=== PATIENT | female | born 1970 | race Caucasian/White ===

== ENCOUNTER → 2021-11-25 20:52 | Outpatient (CLI) | payer BC, SELFPAY ==
[2021-11-25 17:09] LABS: Basophils % 0.9 % (0.1-2.0); Eosinophils # 0.1 K/mm3 (0.0-0.4); Eosinophils % 2.1 % (0.1-12.0); Hematocrit 43.9 % (37.0-47.0); Hemoglobin 14.3 g/dL (12.2-16.2); Lymphocytes # 1.3 K/mm3 (0.7-4.5); Lymphocytes % 27.1 % (10-50); Mean Corpuscular HGB Conc 32.6 g/dL (31.8-35.4); Mean Corpuscular Hemoglobin 30.1 pg (27.0-31.2); Mean Corpuscular Volume 92.4 fl (81-99); Mean Platelet Volume 9.3 fl (7.4-10.4); Monocytes # 0.4 K/mm3 (0.1-1.0); Monocytes % 7.4 % (1.7-9.3); Neutrophils # 3.1 K/mm3 (1.8-7.8); Neutrophils % 62.5 % (37.0-80.0); Platelet Count 201 K/mm3 (142-424); Red Blood Count 4.75 M/mm3 (4.20-5.40); Red Cell Distribution Width 13.9 % (11.5-17.5)
[2021-11-25 17:10] LABS: Alanine Aminotransferase 14 U/L (12-78); Albumin Level 4.3 g/dl (3.5-5.0); Albumin/Globulin Ratio 1.4 (1.1-1.8); Alkaline Phosphatase 44 U/L (38-126); Anion Gap 10.6 mEq/L (5-15); Aspartate Amino Transferase 27 U/L (14-36); Bilirubin,Total 0.5 mg/dl (0.2-1.3); Blood Urea Nitrogen 10 mg/dl (7-17); Calcium 9.8 mg/dl (8.4-10.2); Carbon Dioxide 28 mmol/L (22.0-30.0); Chloride 106 mmol/L (98-107); Chol/HDL Ratio 3.2 (1-3.5); Cholesterol 242 mg/dl (140-200); Estimated Glomerular Filt Rate 105 ml/min (>60); GFR (African American) 127 ML/MIN (>60); Glucose 104 mg/dl (74-100); HDL Cholesterol 76 mg/dl (40-60); Potassium 4.6 mmoL/L (3.5-5.1); Sodium 140 mmol/L (136-145); Total Protein,Serum 7.3 g/dl (6.3-8.2); Triglycerides 105 mg/dl (30-150); VLDL Cholesterol 21 mg/dL (0-40)
[2021-11-25 17:21] LABS: Direct LDL Cholesterol 116.04 mg/dL (100-129)
[2021-11-25 17:28] LABS: 25-OH Vitamin D, Total 51.8 ng/mL (30-100)
[2021-11-25 17:37] LABS: Hemoglobin A1C 5.6 % (4.0-6.0)
[2021-11-25 17:41] LABS: Thyroid Stimulating Hormone 2.77 uIU/mL (0.465-4.68)
== END ==
PROVIDERS: PCP Family Medicine; Visit Provider Family Medicine
DX: R53.83 Other fatigue (principal); E03.9 Hypothyroidism, unspecified; I10 Essential (primary) hypertension; E11.9 Type 2 diabetes mellitus without complications
CPT/HCPCS: 80053; 80061; 82306; 82746; 83036; 84443; 85025

== ENCOUNTER → 2021-12-10 07:37 | Outpatient (CLI) | payer SELFPAY ==
--- NOTE | 2021-12-10 07:42 | CT_ITS ---
FINAL REPORT CLINICAL HISTORY: hx of heart palpitation. family hx of [place] FINDINGS: CT CORONARY CALCIUM SCORE W/O TECHNIQUE: Thin-section axial images were obtained through the heart and coronary arteries per CT coronary calcium score protocol. This study was performed with techniques to keep radiation doses as low as reasonably achievable (ALARA). Individualized dose reduction techniques using automated exposure control or adjustment of mA and/or kV according to the patient's size were employed. FINDINGS: On the axial images, there is calcification primarily within the LAD however a small amount is seen within the right coronary artery. This gives a coronary artery calcium score of 130 based on the Agatston scale. This coronary artery calcium score places the patient within the 95th percentile based on age and gender. The heart size is normal. There is no pleural or pericardial effusion. Limited evaluation of the lungs reveal no suspicious nodule. There are calcified granulomas in the right lower lobe. IMPRESSION: Coronary artery calcium score of 130 which places the patient within the 95th percentile based on age and gender. Reviewed, Interpreted and Dictated by Hudson Abernathy III, MD Transcribed by Julia Schwartz Authenticated and [facility]
== END ==
PROVIDERS: PCP Family Medicine; Visit Provider Family Medicine
DX: I25.10 Atherosclerotic heart disease of native coronary artery without angina pectoris (principal)
CPT/HCPCS: 75571

== ENCOUNTER → 2023-04-12 12:00 | Outpatient (CLI) | payer BC, SELFPAY ==
[2023-04-12 18:46] LABS: Alanine Aminotransferase 17 U/L (12-78); Albumin Level 4.3 g/dl (3.5-5.0); Albumin/Globulin Ratio 1.4 (1.1-1.8); Alkaline Phosphatase 44 U/L (38-126); Anion Gap 9.5 mEq/L (5-15); Aspartate Amino Transferase 28 U/L (14-36); Bilirubin,Total 0.5 mg/dl (0.2-1.3); Blood Urea Nitrogen 14 mg/dl (7-17); Calcium 8.9 mg/dl (8.4-10.2); Carbon Dioxide 26 mmol/L (22.0-30.0); Chloride 107 mmol/L (98-107); Chol/HDL Ratio 3.1 (1-3.5); Cholesterol 218 mg/dl (140-200); Estimated Glomerular Filt Rate 87 ml/min (>60); GFR (African American) 106 ML/MIN (>60); Glucose 102 mg/dl (74-100); HDL Cholesterol 70 mg/dl (40-60); Potassium 4.5 mmoL/L (3.5-5.1); Sodium 138 mmol/L (136-145); Total Protein,Serum 7.3 g/dl (6.3-8.2); Triglycerides 57 mg/dl (30-150); VLDL Cholesterol 11 mg/dL (0-40)
[2023-04-12 19:07] LABS: Direct LDL Cholesterol 125.27 mg/dL (100-129)
[2023-04-12 19:13] LABS: Thyroid Stimulating Hormone 2.93 uIU/mL (0.465-4.68)
== END ==
PROVIDERS: PCP Family Medicine; Visit Provider Family Medicine
DX: Z00.00 Encounter for general adult medical examination without abnormal findings (principal); R73.9 Hyperglycemia, unspecified; E78.00 Pure hypercholesterolemia, unspecified
CPT/HCPCS: 80053; 80061; 84443

== ENCOUNTER 2024-12-11 07:51 | Outpatient (CLI) | payer BC, SELFPAY ==
--- OUTSIDE RECORDS SUMMARY | 2023-12-11 05:00 | XMS_ITS ---
Author Organization [facility] Address [address] [place] [address] Care Team Providers Care System Support Technician Name Role Phone Migration, Provider Unavailable Unavailable Allergies Allergen (clinical drug ingredient) Drug/Non Drug Allergy documented on EMR Reaction Allergy Type Onset Date Status Medications: NO KNOWN DRUG ALLERGIES (uncoded) Unspecified Allergy Active Social History Tobacco Use: Social History Observation Description Date Smoking Status WARNING: Information temporarily unavailable Social History Household: Social Info Question Answer Notes Household Marital status: Tobacco Use: Social Info Question Answer Notes Tobacco Control (Standard) Tobacco use: Never Encounters Encounter Location Date Provider Diagnosis [facility] [address] [place] [address] 12/11/2023 Provider Migration Plan Of Treatment No Information Progress Notes * Maribell WILBURNDOB:1970 ([age] yo F)Acc No.[id number]:12/11/2023 Patient: Maribell HANNAH :1970 A ge:53 Y S ex:Female [address] [facility] [address] Subjective: * Chief Complaints: * Medical History: Appendix Neoplasm, 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 Induced 0 , A B. Spontaneous 0 , E ctopics 0 , M ultiple Births 0 , L iving 2 . G P G ravida: 2 , P susana: 2 . P regnancy # 1: B irthDate :12/18/1994 BirthLbs :8 BirthOzs :5 Comment : Weight: 8.5 DeliveryType :Vaginal PTL :N Sex :F. Elizabeth silva # 2: B irthDate :08/17/1997 BirthLbs :10 Comment : Weight: 10 DeliveryType :Vaginal PTL :N Sex :M. * Surgical History: Appendectomy cancer 2018 Bilateral salpingectomy with oophorectomy 2018 Colon surgery 2018 Gallbladder Surgery - Open 2018 lymph node biopsy * Family History: F amily History Verified.. Mother: Bladder Neoplasm, Malignant. * Allergies: M edications: NO KNOWN DRUG ALLERGIES: Unspecified - AllergyyesAllergies Verified. * * Date:
--- OUTSIDE RECORDS SUMMARY | 2024-11-06 07:47 | XMS_ITS | Encounter Summary ---
Author Organization [place] [address] Care Team Providers Care Paralegal Legal Secretary Name Role Phone Eder Malone MD Primary Care Provider [phone] Reason for Referral * MRI/CAT Scan (Routine) - Pending Review Specialty Diagnoses / Procedures Referred By Contac t Referred To Contact Radiology Diagnoses Primary malignant neoplasm of appendix (HCC) Procedures CT ABDOMEN PELVIS W CONTRAST Gab Olivo MD [address] [place] [address] [place] [address] Phone: tel: fax: Referral ID Status Reason Start Date Expiration Date V isits Requested Visits Authorized [id number] Pending Review 07/12/2024 07/12/2025 1 1 * MRI/CAT Scan (Routine) - Pending Review Specialty Diagnoses / Procedures Referred By Contac t Referred To Contact Radiology Diagnoses Primary malignant neoplasm of appendix (HCC) Procedures CT CHEST W CONTRAST Gab Olivo MD [address] [place] [address] [place] [address] Phone: tel: fax: Referral ID Status Reason Start Date Expiration Date V isits Requested Visits Authorized [id number] Pending Review 07/12/2024 07/12/2025 1 1 * MRI/CAT Scan (Routine) - Closed Specialty Diagnoses / Procedures Referred By Contac t Referred To Contact Radiology Diagnoses Malignant neoplasm of appendix (HCC) Procedures CT CHEST ABDOMEN PELVIS W CONTRAST Gab Olivo MD [address] [place] [address] [place] [address] Phone: tel: fax: Referral ID Status Reason Start Date Expiration Date Visits Re quested Visits Authorized [id number] Closed 07/06/2024 07/06/2025 1 1 Reason for Visit * MRI/CAT Scan (Routine) - Closed Specialty Diagnoses / Procedures Referred By Contac t Referred To Contact Radiology Diagnoses Malignant neoplasm of appendix (HCC) Procedures CT CHEST ABDOMEN PELVIS W CONTRAST Gab Olivo MD [address] [place] [address] [place] [address] Phone: tel: fax: Referral ID Status Reason Start Date Expiration Date Visits Re quested Visits Authorized [id number] Closed 07/06/2024 07/06/2025 1 1 Encounter Details Date Type Department Care Team (Latest Contact Info) Description 11/06/2024 7:47 AM EDT - 11/06/2024 11:59 PM EDT Hospital Encounter [place] [address] [place] [address] Gab Olivo MD [address] [place] [address] [place] [address] Malignant neoplasm of appendix (HCC); Primary malignant neoplasm of appendix (HCC) Discharge Disposition: Home or Self Care Social History Tobacco Use Types Packs/Day Years Used Date Smoking Tobacco: Never Smokeless Tobacco: Never Alcohol Use Standard Drinks/Week Comments No 0 (1 standard drink = 0.6 oz pur e alcohol) Sexually Active Control Partners Comments Yes Other-see comments Male V asectomy Comments No Sex and Gender Information Value Date Recorded Sex Assigned at Not on file Legal Sex Female 1:30 AM EDT Gender Identity Not on file Sexual Orientation Not on file documented as of this encounter Medications at Time of Discharge predniSONE (DELTASONE) 50 mg Oral Tablet Take 50 mg by mouth daily as needed. as needed for CT scans 03/09/2023 documented as of this encounter Discharge Disposition Disposition Code Departure Means Destination Home or Self Care documented in this encounter Plan of Treatment Scheduled Orders Name Type Priority Associated Diagnoses Orde r Schedule CT CHEST W CONTRAST Imaging Routine Primary malignant neoplasm of appendix (HCC) 1 Occurrences starting 11/06/2024 until 11/06/2024 CT ABDOMEN PELVIS W CONTRAST Imaging Routine Primary malignant neoplasm of appendix (HCC) 1 Occurrences starting 11/06/2024 until 11/06/2024 documented as of this encounter Procedures Procedure Name Priority Date/Time Associated Diagnosis Comments CT CHEST ABDOMEN PELVIS W CONTRAST Routine 11/06/2024 8:17 AM EDT Malignant neoplasm of appendix (HCC) documented in this encounter Results * CT CHEST ABDOMEN PELVIS W CONTRAST (11/06/2024 8:17 AM EDT) Anatomical Region Laterality Modality Abdomen, Chest, Pelvis Computed Tomography 11/06/2024 8:17 AM EDT Impressions 11/06/2024 11:06 AM EDT No evidence of metastatic disease within the chest, abdomen, or pelvis. - Note: Radiology results need to be interpreted within a comprehensive clinical context. If you have questions about the radiology report, please contact the office of the ordering clinician. Narrative 11/06/2024 11:[address] CHEST, ABDOMEN, AND PELVIS WITH CONTRAST, 11/06/2024 8:17 AM CLINICAL HISTORY: C18.1-Malignant neoplasm of appendix (HCC)-ICD-10-CM COMPARISON: March 09, 2024 PROCEDURE COMMENTS: Multidetector volumetric CT with multiplanar reconstructions from the thoracic inlet through the lung bases and from the lung bases through the pubic symphysis with IV administration of 100 ml Isovue 370. FINDINGS: CT CHEST: Heart is normal size. No pericardial effusion. Mild coronary artery calcification. Thoracic aorta is normal caliber. There is no mediastinal mass. There is no adenopathy in the chest. No airspace consolidation, pleural effusion, or pneumothorax. The central tracheobronchial tree is patent without endobronchial lesion. Calcified granuloma right lower lobe unchanged. No new or enlarging pulmonary nodular opacity. CT ABDOMEN AND PELVIS: No focal hepatic lesion. Spleen, pancreas, adrenal glands normal. The kidneys enhance normally and there is no hydronephrosis. Urinary bladder is normal. Postsurgical changes appendectomy. There are no dilated bowel loops. No wall thickening or free air. No mass lesion, fluid collection, or lymphadenopathy. Abdominal aorta is normal caliber. No acute or destructive osseous abnormality. Procedure Note Eladio London MD - 11/06/2024 CT CHEST, ABDOMEN, AND PELVIS WITH CONTRAST, 11/06/2024 8:17 AM CLINICAL HISTORY: C18.1-Malignant neoplasm of appendix (HCC)-ICD-10-CM COMPARISON: March 09, 2024 PROCEDURE COMMENTS: Multidetector volumetric CT with multiplanarreconstructions from the thoracic inlet through the lung bases and from the lung basesthrough the pubic symphysis with IV administration of 100 ml Isovue 370. FINDINGS: CT CHEST: Heart is normal size. No pericardial effusion. Mild coronaryartery calcification. Thoracic aorta is normal caliber. There is no mediastinalmass. There is no adenopathy in the chest. No airspace consolidation, pleural effusion, or pneumothorax. Thecentral tracheobronchial tree is patent without endobronchial lesion. Calcified granuloma right lower lobe unchanged. No new or enlarging pulmonarynodular opacity. CT ABDOMEN AND PELVIS: No focal hepatic lesion. Spleen, pancreas,adrenal glands normal. The kidneys enhance normally and there is nohydronephrosis. Urinary bladder is normal. Postsurgical changes appendectomy. There are no dilated bowel loops. Nowall thickening or free air. No mass lesion, fluid collection, or lymphadenopathy. Abdominal aorta isnormal caliber. No acute or destructive osseous abnormality. IMPRESSION: No evidence of metastatic disease within the chest, abdomen, or pelvis. - Note: Radiology results need to be interpreted within a comprehensiveclinical context. If you have questions about the radiology report, please contactthe office of the ordering clinician. 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) documented in this encounter Administered Medications Inactive Administered Medications - up to 1 most recent administrations Medication Order MAR Action Action Date Dose Rate Site iopamidoL (ISOVUE-370) 370 mg iodine /mL (76 %) injection (LOW) 100 mL 100 mL, Intravenous, ONCE PRN, 1 dose, Starting on Wed11/06/24 at 0805, Until Wed11/06/24 at 0817, Radiography/Imaging, Radiology Procedure, VESICANT , CT (Contrasts) Given 11/06/2024 8:17 AM EDT 100 mL sodium chloride 0.9% syringe Intravenous, ONCE PRN, 1 dose, Starting on Wed11/06/24 at 0805, Until Wed11/06/24 at 0817, Line Care, Flush peripheral lines every 12 hours, central lines every 8 hours, and after IV medication, CT (Contrasts) Given 11/06/2024 8:17 AM EDT documented in this encounter Care Teams Paralegal Legal Secretary Relationship Specialty Start Date End Date Eder Malone MD PCP - General Family Medicine 10/10/13 documented as of this encounter
--- OUTSIDE RECORDS SUMMARY | 2024-11-28 13:40 | XMS_ITS | Encounter Summary ---
Author Organization [facility] Address [address] [place] [address] Care Team Providers Care Retail Marketing Coordinator Name Role Phone Eder Malone MD Primary Care Provider Sammi Singh Unavailable Unavailable Gab Olivo MD Unavailable [phone] Katelynn Tian RN Unavailable Unavailable Eva Zambrano NP Unavailable Unavailable Ambulatory, Vault Keeper Unavailable Unavailab Gab Patterson MD Unavailable [phone] Reason for Visit * Reason Comments Follow-up Encounter Details Date Type Department Care Team (Late st Contact Info) Description 11/28/2024 1:40 PM EDT Office Visit [facility] Physicians - Hematology & Oncology, [place] [address] [place] [address] Martha Stallworth VP ANCILLARY [address] [place] [address] [place] [address] Primary malignant neoplasm of appendix (CMS/HCC) Social History Tobacco Use Types Packs/Day Years Used Date Smoking Tobacco: Never Comments Unknown Sex and Gender Information Value Date Recorded Sex Assigned at Not on file Legal Sex Female 4:20 PM EST Gender Identity Not on file Sexual Orientation Not on file documented as of this encounter Last Filed Vital Signs Vital Sign Reading Time Taken Comments Blood Pressure 121/68 11/28/2024 1:43 PM EDT Pulse 76 11/28/2024 1:43 PM EDT Temperature 36.6 C (97.9 F) 11/28/2024 1:43 PM EDT Respiratory Rate - - Oxygen Saturation 98% 11/28/2024 1:43 PM EDT Inhaled Oxygen Concentration - - Weight 67.7 kg (149 lb 4 oz) 11/28/2024 1:43 PM EDT Height 167.6 cm (5' 5.98 ) 11/28/2024 1:43 PM ED T Body Mass Index 24.1 11/28/2024 1:43 PM EDT documented in this encounter Progress Notes * Martha Stallworth, VP ANCILLARY - 11/28/2024 1:40 PM EDT [facility] ONCOLOGY FOLLOW-UP PROGRESS NOTE Patient ID: Maribell Witt Age: 54 y.o. 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 She denies any nausea vomiting diarrhea or constipation. Oncology Problems ICD-10-CM 1. Primary malignant neoplasm of appendix (CMS HCC) C18.1 Oncology History Heme/Onc History Primary malignant neoplasm of appendix (CMS HCC) 07/05/2017 Initial Diagnosis Primary malignant neoplasm of appendix (CMS HCC) Chemotherapy Prior Treatment Regimens from [facility] Observation every 6 months v1.0 04/18/2019 08/03/2035 0/ 153.5/C18.1 Ongoing FOLFOX x 8 cycles (adjuvant) v3.0 10/18/2017 04/11/201803/20 153.5/C18.1, 787.01/R11.2 Discontinued treatment is complete Cancer Staged Cancer Staging from [facility] Appendix Cancer (Gastrointestinal) - Pathologic Stage IIA (AJCC v8) TNM: pT3, pN0, cM0; Histologic Grade (8th Edition): G3 Medications Current Outpatient Medications on File Prior to Visit Medication Sig Dispense Refill atorvastatin (LIPITOR) 10 mg Tablet (Patient not taking: Reported on 11/28/2024) predniSONE (DELTASONE) 50 mg tablet Take 1 tablet by mouth 13 hours prior to scan, 7 hours before scan and last tablet 1 hour prior to scan. Take along with Benadryl 50mg PO1 hour prior to scan over the counter (Patient not taking: Reported on 11/28/2024) 3 Tablet 0 No current facility-administered medications on file prior to visit. Allergies Allergen Reactions Other [id number] Objective Vital Signs BP 121/68 Pulse 76 Temp 97.9 ??F (36.6 ??C) (Temporal) Ht 1.676 m (5' 5.98 ) Wt 67.7 kg (149 lb 4 oz) SpO2 98% BMI 24.10 kg/m?? Physical Exam Physical Exam Vitals reviewed. Constitutional: Appearance: Normal appearance. HENT: Head: Normocephalic and atraumatic. Mouth/Throat: Mouth: Mucous membranes are moist. Eyes: Extraocular Movements: Extraocular movements intact. Conjunctiva/sclera: Conjunctivae normal. Cardiovascular: Rate and Rhythm: Normal rate and regular rhythm. Pulses: Normal pulses. Heart sounds: Normal heart sounds. No murmur heard. Pulmonary: Effort: Pulmonary effort is normal. Breath sounds: Normal breath sounds. Abdominal: General: Bowel sounds are normal. There is no distension. Palpations: Abdomen is soft. There is no mass. Tenderness: There is no abdominal tenderness. Musculoskeletal: General: Normal range of motion. Right lower leg: No edema. Left lower leg: No edema. Skin: General: Skin is warm. Findings: No rash. Neurological: General: No focal deficit present. Mental Status: She is alert and oriented to person, place, and time. Psychiatric: Mood and Affect: Mood normal. Behavior: Behavior normal. Thought Content: Thought content normal. Judgment: Judgment normal. ECO. Fully active, able to carry on all pre-disease performance without restriction. Laboratory, Pathology and Diagnostic Data I have reviewed and personally interpreted the most recent labs, pathology, and imaging. Assessment Lab Results Component Value Date WBC 5.3 11/28/2024 HGB 13.2 11/28/2024 HCT 42.3 11/28/2024 MCV 93.6 11/28/2024 PLT 179 11/28/2024 NEUTOPHILPCT 57.4 11/28/2024 LYMPHOPCT 27.9 11/28/2024 MONOPCT 9.2 11/28/2024 EOSPCT 4.7 11/28/2024 BASOPCT 0.8 11/28/2024 NEUTROABS 3.1 11/28/2024 LYMPHSABS 1.5 11/28/2024 MONOSABS 0.5 11/28/2024 EOSABS 0.3 11/28/2024 BASOSABS 0.0 11/28/2024 06/30/2022 CT of chest abdomen pelvis with contrast shows stable examination since 11/04/2021. No evidence of recurrent or metastatic disease within the chest abdomen or pelvis Assessment & Plan Appendiceal cancer: No change in bowel habits Repeat colonoscopy was negative reviewed notes from [facility] Completed folfox in 2017/mar she is now more than 5 years scans will be symptom directed -will continue to see her on a six-month basis No new issues Labs today cbc cmp Reviewed imaging from 10/2024 documented in this encounter Plan of Treatment Not on file documented as of this encounter Procedures Procedure Name Priority Date/Time Associated Diagnosis Comments POC CBC AND DIFF HEM/ONC ONLY Routine 11/28/2024 1:46 PM EDT Primary malignant neoplasm of appendix (CMS/HCC) COMPREHENSIVE METABOLIC PANEL Routine 11/28/2024 1:46 PM EDT Primary malignant neoplasm of appendix (CMS/HCC) documented in this encounter Results * POC CBC AND DIFF HEM/ONC ONLY (11/28/2024 1:46 PM EDT) WBC 5.3 4.0 - 12.0 10*3/uL [facility] RBC 4.52 3.80 - 5.10 10*6/uL [facility] Hemoglobin 13.2 11.7 - 15.5 g/dL [facility] Hematocrit Blood 42.3 35.0 - 46.0 % [facility] MCV 93.6 80.0 - 100.0 fL [facility] Comment: Test was performed at [facility] Hematology Oncology [place] office lab, [address], [place] [address]. MCH 29.2 27.0 - 33.0 pg [facility] MCHC 31.2 30.0 - 36.0 g/dL [facility] RDW 14.3 11.0 - 15.0 % [facility] Platelets 179 140 - 400 10*3/uL [facility] MPV 10.4 9.0 - 13.0 fL [facility] Neutrophils Relative 57.4 % [facility] Lymphocytes Relative 27.9 % [facility] Monocytes Relative 9.2 % [facility] Neutrophils Absolute 3.1 1.5 - 7.8 10*3/uL [facility] Lymphocytes Absolute 1.5 0.8 - 3.9 10*3/uL [facility] Monocytes Absolute 0.5 0.2 - 0.9 10*3/uL [facility] Eosinophils Relative 4.7 % [facility] Eosinophils Absolute 0.3 0.0 - 0.5 10*3/uL [facility] Basophils Relative 0.8 % [facility] Basophils Absolute 0.0 0.0 - 0.2 10*3/uL [facility] Immature Granulocytes 0.00 % [facility] Immature Granulocytes Absolute 0.00 0.00 - 0.10 10*3/uL [facility] Whole Blood 11/28/2024 1:46 PM EDT 11/28/2024 2:26 PM EDT Martha Stallworth VP ANCILLARY HEMATOLOGY ORDERABLES Final R esult [facility] [address] * COMPREHENSIVE METABOLIC PANEL (11/28/2024 1:46 PM EDT) Sodium 143 135 - 146 mmol/L [facility] Potassium 4.1 3.5 - 5.1 mmol/L [facility] Chloride 109 98 - 110 mmol/L [facility] CO2 28 22 - 29 mmol/L [facility] Anion Gap 6 5 - 13 mmol/L [facility] Comment:Anion gap calculatio n does not include potassium (K+) value. BUN 15 7 - 25 mg/dL [facility] Creatinine 0.74 0.50 - 1.20 mg/dL [facility] Glucose 94 71 - 99 mg/dL [facility] Comment:Reference range (71- 99 mg/dL) refers only to fasting samples, and does not apply to non-fasting samples. eGFR CKD-EPI 2020 95 See Note [facility] Comment: eGFR calculated with 2020 CKD-EPI equation using creatinine, patient's age and gender. Other factors, especially muscle mass, may affect accuracy and need to be considered. Patient values should be interpreted as a trend. The reference interval is >60 mL/min/1.73m2. Calcium 9.1 8.5 - 10.5 mg/dL [facility] Total Bilirubin 0.6 0.2 - 1.2 mg/dL [facility] AST 22 0 - 30 U/L [facility] ALT 14 0 - 40 U/L [facility] Alkaline Phosphatase 40 33 - 140 U/L [facility] Total Protein 7.1 6.0 - 8.0 g/dL [facility] Albumin 4.1 3.5 - 5.0 g/dL [facility] Globulin 3.0 2.0 - 3.7 g/dL [facility] Albumin/Globulin Ratio 1.4 1.0 - 2.1 [facility] BUN/Creatinine Ratio 20 [facility] Serum (Serum) 11/28/2024 1:4 6 PM EDT 11/28/2024 7:07 PM EDT us Martha Stallworth VP [employer]LL[employer] CHEMISTRY ORDERABLES Final Re sult [facility] [address] documented in this encounter Visit Diagnoses Diagnosis Primary malignant neoplasm of appendix (CMS/HCC) documented in this encounter Care Teams Retail Marketing Coordinator Relationship Specialty Start Date End Date Eder Malone MD PCP - General Family Medicine 06/28/17 Sammi Singh 04/16/21 Gab Olivo MD [address] [place] [address] Hematology and Oncology 04/16/21 Katelynn Tian RN Registered Nurse 09/03/21 vEa Zambrano NP Nurse Practitioner Nurse Practitioner, Family 09/04/21 Ambulatory, Vault Keeper 09/04/21 Gab Olivo MD [address] [place] [address] [place] [address] Hematology and Oncology 06/09/23 documented as of this encounter
[2024-12-11 15:39] LABS: Hematocrit 43.1 % (37.0-47.0); Hemoglobin 13.4 g/dL (12.2-16.2); Immature Granulocytes % 0.2 %; Mean Corpuscular HGB Conc 31.1 g/dL (31.8-35.4); Mean Corpuscular Hemoglobin 28.9 pg (27.0-31.2); Mean Corpuscular Volume 93.1 fl (81-99); Nucleated Red Blood Cells % 0 %; Platelet Count 191 K/mm3 (142-424); Red Blood Count 4.63 M/mm3 (4.20-5.40); Red Cell Distribution Width-SD 50.3 fL; White Blood Count 4.4 K/mm3 (4.8-10.8)
[2024-12-11 16:30] LABS: Iron 96 ug/dL (37-170)
[2024-12-11 16:36] LABS: Alanine Aminotransferase 21 U/L (12-78); Albumin Level 4.3 g/dl (3.5-5.0); Albumin/Globulin Ratio 1.7 (1.1-1.8); Alkaline Phosphatase 51 U/L (38-126); Anion Gap 7.4 mEq/L (5-15); Aspartate Amino Transferase 34 U/L (14-36); Bilirubin,Total 0.4 mg/dl (0.2-1.3); Blood Urea Nitrogen 11 mg/dl (7-17); Calcium 9.7 mg/dl (8.4-10.2); Carbon Dioxide 29 mmol/L (22.0-30.0); Chloride 107 mmol/L (98-107); Cholesterol 208 mg/dl (140-200); Creatinine,Serum 0.60 mg/dl (0.52-1.04); Estimated Glomerular Filt Rate 103 ml/min (>60); GFR (African American) 125 ML/MIN (>60); Globulin 2.5 g/dL (1.3-3.2); Glucose 98 mg/dl (74-100); HDL Cholesterol 72 mg/dl (40-60); Potassium 4.4 mmoL/L (3.5-5.1); Sodium 139 mmol/L (136-145); Total Protein,Serum 6.8 g/dl (6.3-8.2); Triglycerides 64 mg/dl (30-150)
[2024-12-11 16:39] LABS: Total Iron Binding Capacity 316 ug/dL (265-497)
[2024-12-11 17:06] LABS: Thyroid Stimulating Hormone 2.51 uIU/mL (0.465-4.68)
--- OUTSIDE RECORDS SUMMARY | 2024-12-13 07:53 | XMS_ITS | Clinical Summary ---
Author Organization [facility] Address [address] [place] [address] Care Team Providers Care Radiologic Technologist Name Role Phone Eder Malone MD Primary Care Provider [phone] Sammi Singh Unavailable Unavailable Gab Olivo MD Unavailable [phone] Katelynn Tian RN Unavailable Unavailable Eva Zambrano NP Unavailable Unavailable Ambulatory, Floriculture Professor Unavailable Unavailab Gab Patterson MD Unavailable [phone] Allergies Active Allergy Reactions Criticality Noted Date Comments Other 07/05/2017 [id number] Medications atorvastatin (LIPITOR) 10 mg Tablet 2 Active predniSONE (DELTASONE) 50 mg tabletIndicatio ns:Primary malignant neoplasm of appendix (CMS/HCC) Take 1 tablet by mouth 13 hours prior to scan, 7 hours before scan and last tablet 1 hour prior to scan. Take along with Benadryl 50mg PO1 hour prior to scan over the counter 3 Tablet 5 Active Additional Information Patient not taking.Reported on 11/28/2024 Active Problems Problem Noted Date Diagnosed Date Primary malignant neoplasm of appendix 8 Encounters Date Type Department Care Team Description 11/28/2024 1:40 PM EDT Office Visit [facility] - Hematology & Oncology, [place] [address] [phone] Martha Stallworth NP Primary malignant neoplasm of appendix (CMS/HCC) 09/22/2024 Refill [facility] - Hematology & Oncology, [place] [address] [phone] Katelynn Tian, RN Medications Refill from Last 3 Months Social History Tobacco Use Types Packs/Day Years Used Date Smoking Tobacco: Never Tobacco Cessation:Counseling Given: Not Answered Comments Unknown Sex and Gender Information Value Date Recorded Sex Assigned at Not on file Legal Sex Female 4:20 PM EST Gender Identity Not on file Sexual Orientation Not on file Last Filed Vital Signs Vital Sign Reading [...] Mass Index 24.1 11/28/2024 1:43 PM EDT Plan of Treatment Health Maintenance Due Date Last Done Comments Cologuard 1968 FIT 1968 Lipid Monitoring 1985 Cervical Cancer Screening 1989 Pneumococcal Vaccine: 50+ Ye ars (1 of 1 - PCV) 2018 Zoster-RZV(Shingrix) (1 of 2) 2018 COVID-19 Vaccine ( - 2023-2 5 season) 2024 Depression Screening 05/10/2024 Influenza Vaccination (#1) 2025 Breast Cancer Screening 06/12/2026 06/12/19, 06/12/2024, 05/24/2023, Additional history exists Tetanus Vaccination (Every 1 0 Years) 02/12/2030 02/13/2020 Colonoscopy 02/27/2034 02/28/2024 Colorectal Cancer Screening 02/27/2034 Procedures Procedure Name Priority Date/Time Associated Diagnosis Comments COMPREHENSIVE METABOLIC PANEL Routine 11/28/2024 1:46 PM EDT Primary malignant neoplasm of appendix (CMS/HCC) POC CBC AND DIFF HEM/ONC ONLY Routine 11/28/2024 1:46 PM EDT Primary malignant neoplasm of appendix (CMS/HCC) from Last 3 Months Results * POC CBC AND DIFF HEM/ONC [...] LAB Comment: Test was performed at [facility] ([facility]3] Hematology Oncology [place] office lab, [address], [place] [address]. MCH 29.2 27.0 - 33.0 pg [facility] MCHC 31.2 30.0 - 36.0 g/dL [facility] RDW 14.3 11.0 - 15.0 % [facility] Platelets 179 140 - 400 10*3/uL [facility] MPV 10.4 9.0 - 13.0 [...] [facility] Eosinophils Relative 4.7 % [facility] Eosinophils Absolute 0.3 0.0 - 0.5 10*3/uL [facility] Basophils Relative 0.8 % [facility] Basophils Absolute 0.0 0.0 - 0.2 10*3/uL [facility] Immature Granulocytes 0.00 % [facility] Immature Granulocytes Absolute 0.00 0.00 - 0.10 10*3/uL [facility] Whole Blood 11/28/2024 1:46 PM EDT 11/28/2024 2:26 PM EDT us Martha Stallworth BANDER HAND HEMATOLOGY ORDERABLES Final R esult [facility] [address] [place] [address], [facility] * COMPREHENSIVE METABOLIC PANEL (11/28/2024 1:46 PM [...] value. BUN 15 7 - 25 mg/dL [facility] Creatinine 0.74 0.50 - 1.20 mg/dL [facility] Glucose 94 71 - 99 mg/dL [facility] Comment:Reference range (71- 99 mg/dL) refers only to fasting samples, and does not apply to non-fasting samples. eGFR CKD-EPI 2020 95 See Note [facility] Comment: eGFR calculated with 2020 [...] Alkaline Phosphatase 40 33 - 140 U/L [facility] Total Protein 7.1 6.0 - 8.0 g/dL [facility] Albumin 4.1 3.5 - 5.0 g/dL [facility] Globulin 3.0 2.0 - 3.7 g/dL [facility] Albumin/Globulin Ratio 1.4 1.0 - 2.1 [facility] BUN/Creatinine Ratio 20 [facility] Serum (Serum) 11/28/2024 1:4 6 PM EDT 11/28/2024 7:07 PM EDT us Martha Stallworth BANDER HAND CHEMISTRY ORDERABLES Final Re sult [facility] [address] [place] [address], [facility] from Last 3 Months Insurance ANTHEM Care Teams Radiologic Technologist Relationship Specialty Start Date End Date Eder Malone MD PCP - General Family Medicine 06/28/17 Sammi Singh 04/16/21 Gab Olivo MD [address] [place] [address] Hematology and Oncology 04/16/21 Katelynn Tian RN Registered Nurse 09/03/21 Eva Zambrano, BANDER HAND Nurse Practitioner Nurse Practitioner, Family 09/04/21 Ambulatory, Floriculture Professor 09/04/21 Gab Olivo MD [address] [place] [address] [place], [place] [id number] Hematology and Oncology 06/09/23
--- OUTSIDE RECORDS SUMMARY | 2024-12-13 07:53 | XMS_ITS | Clinical Summary ---
Author Organization [facility] Address [address] [place] [address] Phone Care Team Providers Care Project Portfolio Analyst Name Role Phone Eder Malone MD Primary Care Provider [phone] Allergies Active Allergy Reactions Criticality Noted Date Comments Iodinated Contrast Media Other (See Comments) Medium 10/28/[address] with iv contrast Premedicated prior to scan on 05/17/2023, sneezed once after scan, no other symptoms, 03/09/24, same as prior statement Medications predniSONE (DELTASONE) 50 mg Oral Tablet Take 50 mg by mouth daily as needed. 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 [place] [address] [place] [address] Gab Olivo MD Malignant neoplasm of appendix (HCC); Primary malignant neoplasm of appendix (HCC) Discharge Disposition: Home or Self Care from Last 3 Months Surgical History Surgery Date Site/Laterality Comments NASAL/SINUS ENDOSCOPY BREAST SURGERY Left lump removed LAPAROSCOPIC APPENDECTOMY 06/21/2017 N/A LAPAROSCOPIC APPENDECTOMY; Surgeon: Casimiro Gardner DO; Location: [facility]; Service: General UPPER GASTROINTESTINAL ENDOSCOPY 07/15/2017 N/A ESOPHAGOGASTRODUODENOSCOPY COLONOSCOPY ; Surgeon: Bao Mcgowan MD; Location: [facility]; Service: Endoscopy CHOLECYSTECTOMY 08/16/2017 due to cancer of appendix COLON SURGERY 08/16/2017 12 inches removed OTHER SURGICAL HISTORY 08/16/2017 partial Omentum removed OVARY REMOVAL 08/16/2017 laparotomy - BSO LAPAROTOMY 09/07/2017 ADHESIONS FROM BSO - BOWEL KINKED APPENDECTOMY COLONOSCOPY 11/07/2019 COLONOSCOPY 02/11/2021 N/A Colonoscopy with polypectomy via forceps; Surgeon: Paris Hayes MD; Location: [facility]; Service: Endoscopy IR PICC INSERTION EQUAL OR > 5 YEARS 10/08/2017 IR PICC INSERTION EQUAL OR > 5 YEARS 10/08/2017 Medical History Medical History Date Comments Heartburn Yeast infection Cancer of appendix (HCC) 2018 History of chemotherapy Family History Medical History Relation Name Comments Heart Attack Father Heart Disease Father Hypertension Father Prostate Cancer Maternal Grandfather over 50 Cancer Maternal Grandmother Stomach Diabetes Maternal Grandmother Cancer Mother Bladder Heart Disease Mother Hypertension Mother Thyroid Disease Mother Cervical Cancer Sister under 40 Anesth Problems Neg Hx Relation Name Status Comments Father Maternal Grandfather Maternal Grandmother Mother Alive Sister Social History Tobacco Use Types Packs/Day Years [...] on file Sexual Orientation Not on file Obstetrics History Para Term AB IAB SAB Ectopic Multiple Livin g Live Births 3 2 2 1 1 2 2 Date Outcome GA Total Labor Labor/2nd/3rd Weight Sex Type Anes PTL Rachel A1 A5 Name Clin Term Vag-S pont Living Term Vag-S pont Living SAB Last Filed Vital Signs Vital Sign Reading Time Taken Comments Blood Pressure 108/46 02/28/2024 9:47 AM EDT Pulse 59 02/28/2024 9:47 AM EDT Temperature 36.5 C (97.7 F) 02/28/2024 9:47 AM EDT Respiratory Rate 16 02/28/2024 9:47 AM EDT Oxygen Saturation 100% 02/28/2024 9:47 AM EDT Inhaled Oxygen Concentration - - Weight 64.4 kg (142 lb) 06/12/2024 10:15 AM EST Height 167.6 cm (5' 6 ) 06/12/2024 10:15 AM EST Body Mass Index 22.92 06/12/2024 10:15 AM EST Plan of Treatment Health Maintenance Due Date Last Done Comments Annual Wellness Exam 08/12/1971 Hepatitis B Vaccine (1 of 3 - 19+ 3-dose series) 08/12/1987 Cologuard 2013 FIT 2013 Sigmoidoscopy 2013 Virtual Colonography 2013 Pneumococcal Vaccine 50+ (1 of 1 - PCV) 2018 Zoster (1 of 2) 2018 COVID-19 Vaccine (1 - season) 2024 Influenza Vaccine (#1) 2025 Pap Smear 02/24/2025 02/24/2022, 02/07, 09/21/2017, Additional history exists Breast Cancer Screening 06/12/2026 06/12/19, 05/24/2023, 03/17/2022, Additional history exists Cervical Cancer Screening 02/24/2027 HPV/Pap Cotest 02/24/2027 02/24/2022 Colon Cancer Screening 02/27/2027 Colonoscopy 02/27/2027 02/28/2024, 10/0 09/2020, 11/07/2019, Additional history exists DTaP/TDaP/Td (2 - Td or Tdap) 02/12/2030 02/13/2020 Meningococcal B Vaccine Aged Out No l onger eligible based on patient's age to complete this topic Procedures Procedure Name Priority Date/Time Associated Diagnosis Comments CT CHEST ABDOMEN PELVIS W CONTRAST Routine 11/06/2024 8:17 AM EDT Malignant neoplasm of appendix (HCC) MM MAMMO DIGITAL [place] SCREEN BILAT Routine 06/12/2024 10:35 AM EST Encounter for screening mammogram for malignant neoplasm of breast COLONOSCOPY Routine 02/28/2024 9:13 AM EDT History of colonic polyps STUDENT SUPPORT ADVISOR CYTOLOGY REQUEST (PAP ONLY) Routine 02/24/2022 10:16 AM EDT Encounter for screening for human papillomavirus (HPV) Encounter for gynecological examination (general) (routine) without abnormal findings Encounter for screening for malignant neoplasm of cervix from Last 3 Months or Most Recently Relevant to Health Maintenance Results * CT CHEST ABDOMEN PELVIS W [...] please contactthe office of the ordering clinician. us Gab Olivo MD IMG CT ORDERABLES Final Result * MM MAMMO DIGITAL [place] SCREEN BILAT (06/12/2024 10:35 AM EST) Anatomical Region Laterality Modality Breast Bilateral Mammography 06/12/2024 10:3 5 AM EST Impressions 06/12/2024 11:06 AM EST Negative ([id number]) RECOMMENDATION: Routine Screening Mammogram in 1 Year Bilateral No additional recommendation No additional laterality COMMENTS: Narrative 06/12/2024 11:06 AM EST EXAM: MM MAMMO DIGITAL [place] SCREEN BILAT EXAM DATE: 06/12/2024 10:35 AM INDICATION: Z12.31-Encounter for screening mammogram for malignant neoplasm of [id number]-FQS-20-CM COMPARISON STUDIES: Compared with prior studies the most recent being 05/24/2023 MM MAMMO DIGITAL [place] SCREEN BILAT at [facility] 03/17/2022 MM MAMMO DIGITAL [place] SCREEN BILAT at [facility] 02/25/2021 MM MAMMO DIGITAL [place] SCREEN BILAT at [facility] TISSUE DENSITY: There are scattered areas of fibroglandular density. FINDINGS: No mammographic evidence of malignancy. Procedure Note Dunia Wagoner MD - 06/12/2024 EXAM: MM MAMMO DIGITAL [place] SCREEN BILAT EXAM DATE: 06/12/2024 10:35 AM INDICATION: Z12.31-Encounter for screening mammogram for malignantneoplasm of vharhz-ICJ-80-CM COMPARISON STUDIES: Compared with prior studies the most recent being 05/24/2023 MM MAMMO DIGITAL [place] SCREEN BILAT at [facility] 03/17/2022 MM MAMMO DIGITAL [place] SCREEN BILAT at [facility] 02/25/2021 MM MAMMO DIGITAL [place] SCREEN BILAT at [facility] TISSUE DENSITY: There are scattered areas of fibroglandular density. FINDINGS: No mammographic evidence of malignancy. IMPRESSION: Negative (XLI-Rynntnre-3) RECOMMENDATION: Routine Screening Mammogram in 1 Year Bilateral No additional recommendation No additional laterality COMMENTS: Eder Malone MD IMG MAMMOGRAPHY ORDERABLES Final Result * COLONOSCOPY (02/28/2024 9:13 AM EDT) Anatomical Region Laterality Modality Endoscopy Narrative 02/28/2024 9:23 AM EDT Table formatting from the original result was not included. Findings Healthy ileocolonic anastomosis in the transverse colon Internal small hemorrhoids Otherwise normal colonoscopy Recommendation Repeat colonoscopy in 3 years, due: 02/27/2027 Pre-Procedure Diagnosis / Indication History of colonic polyps Post-Procedure Diagnosis History of colonic polyps Staff Staff Role Ro Spaulding, BLAKE Rn Palliative Bonnie Daniel MD Anesthesiologist Ioana Smith, SHELLY Hayes MD Performing Provider Kalie Leroy RN Endoscopy Nurse Gilda Salcido RN Endoscopy Nurse Medications See Anesthesia Record. Preprocedure A history and physical has been performed, and patient medication allergies have been reviewed. The patient's tolerance of previous anesthesia has been reviewed. The risks and benefits of the procedure and the sedation options and risks were discussed with the patient. All questions were answered and informed consent obtained. ASA 1 - Normal, healthy patient Details of the Procedure The patient underwent monitored anesthesia care, which was administered by an anesthesia professional. The patient's blood pressure, heart rate, level of consciousness, oxygen, respirations, ECG and ETCO2 were monitored throughout the procedure. A digital rectal exam was performed. The scope was introduced through the anus and advanced to the site of the anastomosis. Retroflexion was performed in the rectum. Bowel prep was adequate. The patient experienced no blood loss. The procedure was not difficult. The patient tolerated the procedure well. There were no apparent adverse events. CO2 insufflation was used for the procedure. Patient provided education and educated on specific discharge instructions. Patient educated on medications given during the procedure and new medications for discharge. Patient verbalizes understanding of discharge education. Patient stable and awaiting transport for discharge. Events Procedure Events Event Event Time ENDO SCOPE IN TIME 02/28/2024 9:05 AM ENDO CECUM REACHED 02/28/2024 9:06 AM ENDO SCOPE OUT TIME 02/28/2024 9:12 AM Specimens No specimens collected Anesthesia Event Time In Patient In - Proc. Room 08:46 AM Patient Out - Proc. Room 09:13 AM Paris Hayes MD ENDOSCOPY PROCEDURE ORDERABLES Final Result * STUDENT SUPPORT ADVISOR CYTOLOGY REQUEST (PAP ONLY) (02/24/2022 10:16 AM EDT) CASE REPORT Gynecologic Cytology Report Case: [id number] Authorizing Provider: Bang Murguia MD Collected: 02/24/2022 1016 Ordering Location: [facility] Received: 02/25/2022 0647 First Screen: Yashira Russell CT Specimen: LIQUID-BASED PAP - CERVICAL/ENDOCERV ICAL, Cervix, Endocervical 02/26/2022 10:19 AM EDT [facility] PAP FINAL DIAGNOSIS Negative for intraepithelial lesion or malignancy 02/26/2022 10:19 AM EDT [facility] at 1019 EDT MICROSCOPIC DESCRIPTION Microscopic examination is performed and the findings corroborate the diagnosis. 02/26/2022 10:19 AM EDT [facility] PAP SMEAR ADEQUACY Satisfactory for evaluation 02/26/2022 10:19 AM EDT [facility] ENDOCERVICAL T-ZONE Transformation zone present 02/26/2022 10:19 AM EDT [facility] EMBEDDED IMAGES 10:19 AM EDT [facility] PAP DISCLAIMER The Pap Smear is a screening test that aids in the detection of cervical cancer and cancer precursors. Both false positive and false negative results can occur. The test should be used at regular intervals, and positive results should be confirmed before definitive therapy. Processed using the ThinPrep Bunch Maker Hand Automated cytology screening device (ProDeaf). 02/26/2022 10:19 AM EDT [facility] Thin Prep ENDOCERVICAL STRUCTURE / Unknown 02/24/2022 10:16 AM EDT 02/25/2022 6:47 AM EDT Bang Murguia MD CYTOLOGY ORDERABLES Final Resul t [facility] [address] [place] [address] from Last 3 Months or Most Recently Relevant to Health Maintenance Insurance [employer] PPO Member Subscriber Plan / Payer (Ef fective 2021-Present) Name:Maribell Witt Relation to Subscriber:Self Name:Maribell Witt Payer ID:[id number] (NAIC) Group ID:Not on file Type:Not on file Address: [address] [employer] PPO Advance Directives For more information, please contact: [phone] * Full Code (Latest Code Status on File) Date Activated Date Inactivated Comments 06/21/2017 9:37 PM 06/22/2017 3:04 PM Care Teams Project Portfolio Analyst Relationship Specialty Start Date End Date Eder Malone MD PCP - General Family Medicine 10/10/13
--- OUTSIDE RECORDS SUMMARY | 2024-12-13 07:53 | XMS_ITS | Encounter Summary ---
Author Organization [facility] [place] [address] Care Team Providers Care Patternator Name Role Phone Eder Malone MD Primary Care Provider [phone] Encounter Details Date Type Department Care Team (Latest Contact Info) Description 02/24/2022 [facility] [place] [id number] Encounter for screening for human papillomavirus (HPV); Encounter for gynecological examination (general) (routine) without abnormal findings; Encounter for screening for malignant neoplasm of cervix Social History Tobacco Use Types Packs/Day Years [...] on file Sexual Orientation Not on file COVID-19 Exposure Response Date Recorded In the last 10 days, have yo u been in contact with someone who was confirmed or suspected to have Coronavirus/COVID-19? No / Unsure 02/12/2022 8:43 AM EDT documented as of this encounter Plan of Treatment Not on file documented as of this encounter Procedures Procedure Name Priority Date/Time Associated Diagnosis Comments REPAIR DEPARTMENT SUPERVISOR CYTOLOGY REQUEST (PAP ONLY) Routine 02/24/2022 10:16 AM EDT Encounter for screening for human papillomavirus (HPV) Encounter for gynecological examination (general) (routine) without abnormal findings Encounter for screening for malignant neoplasm of cervix HPV HIGH RISK WITH REFLEX TO GENOTYPE Routine 02/24/2022 10:16 AM EDT Encounter for screening for human papillomavirus (HPV) Encounter for gynecological examination (general) (routine) without abnormal findings Encounter for screening for malignant neoplasm of cervix documented in this encounter Results * REPAIR DEPARTMENT SUPERVISOR CYTOLOGY REQUEST (PAP ONLY) (02/24/2022 10:16 AM EDT) CASE REPORT Gynecologic Cytology Report Case: [id number] Authorizing Provider: Bang Murguia MD Collected: 02/24/2022 1016 [facility]ing [facility] Received: 02/25/2022 0647 First Screen: Yashira Russell CT Specimen: LIQUID-BASED PAP - CERVICAL/ENDOCERV ICAL, Cervix, Endocervical 02/26/2022 10:19 AM EDT [facility] PAP FINAL DIAGNOSIS Negative for intraepithelial lesion or malignancy 02/26/2022 10:19 AM EDT [facility] at 1019 EDT MICROSCOPIC DESCRIPTION Microscopic examination is performed and the findings corroborate the diagnosis. 02/26/2022 10:19 AM EDT [facility] PAP SMEAR ADEQUACY Satisfactory for evaluation 02/26/2022 10:19 AM EDT [facility] ENDOCERVICAL T-ZONE Transformation zone present 02/26/2022 10:19 AM EDT [facility] EMBEDDED IMAGES 10:19 AM EDT [facility] PAP DISCLAIMER The Pap Smear is a screening test that aids in the detection of cervical cancer and cancer precursors. Both false positive and false negative results can occur. The test should be used at regular intervals, and positive results should be confirmed before definitive therapy. Processed using the ThinPrep Health Type Technician Automated cytology screening device (Qeexo). 02/26/2022 10:19 AM EDT [facility] Thin Prep ENDOCERVICAL STRUCTURE / Unknown 02/24/2022 10:16 AM EDT 02/25/2022 6:47 AM EDT Bang Murguia MD CYTOLOGY ORDERABLES Final Resul t Performing Organization Address [facility] Co de Phone Number [place] [phone] * HPV HIGH RISK WITH REFLEX TO GENOTYPE (02/24/2022 10:16 AM EDT) HPV HR Reflex Not Detected Not Detected 022 7:59 PM EDT [facility]REFERR[facility] [employer] Thin Prep SPECIMEN FROM UTERINE CERVIX / Unknown 02/24/2022 10:16 AM EDT 02/24/2022 7:47 PM EDT Narrative [facility]REFERRED [employer] - 02/25/2022 7:59 PM EDT This test was performed using the FDA Approved APTIMA HPV mRNA assay which detects E6/E7 messenger RNA of High Risk HPV types (16, 18, 31, 33, 35, 39, 45, 51, 52, 56, 58, 59, 66, and 68). This assay is intended for use in women 21 years or older with ASC-US cervical cytology or women 30 years or older. This assay is not intended to substitute for regular cervical cytology screening. Detection of HPV using the APTIMA HPV Assay does not differentiate HPV types and cannot evaluate persistence of any one type. The use of this assay has not been evaluated for the management of HPV vaccinated women, women with prior ablative or excisional therapy, hysterectomy, or who are . Sensitivities may be affected by collection methods, stage of infection, and the presence of interfering substances. Results of this assay should be interpreted in conjunction with other available laboratory and clinical data. Bang Murguia MD MICROBIOLOGY - GENERAL ORDERABL ES Final Result Performing Organization Address [facility]/ZIP Co de Phone Number [employer] [address] [place] [address], [place] [address] documented in this encounter Visit Diagnoses Diagnosis Encounter for screening for human papillomavirus (HPV) Special screening examination for human papillomavirus (HPV) Encounter for gynecological examination (general) (routine) without abnormal findings Encounter for screening for malignant neoplasm of cervix Screening for malignant neoplasm of the cervix documented in this encounter Care Teams Patternator Relationship Specialty Start Date End Date Eder Malone MD PCP - General Family Medicine 10/10/13 documented as of this encounter
--- OUTSIDE RECORDS SUMMARY | 2024-12-13 07:54 | XMS_ITS | Patient Health Record ---
Author Organization [facility] Address [address] [facility] [address] [place] [address] Care Team Providers Care Child Welfare Worker Name Role Phone Migration, Provider Unavailable Unavailable Allergies Allergen (clinical drug ingredient) Drug/Non Drug Allergy documented on EMR Reaction Allergy Type Onset Date Status Medications: NO KNOWN DRUG ALLERGIES (uncoded) Unspecified Allergy Active Reason For Referral No Information Social History Social History Sexual History: Social Info Question Answer Notes Sexual History Had sex in the past 12 months (vaginal, oral, or anal)? Yes Drugs/Alcohol: Social Info Question Answer Notes Drugs Have you used drugs other than those for medical reasons in the past 12 months? No Alcohol Screen Did you have a drink containing alcohol in the past year? Yes Points 0 Interpretation Negative Tobacco Use: Social Info Question Answer Notes Tobacco Use/Smoking Are you a former smoker Tobacco use other than smoking: Are you an other tobac co user? No Plan Of Treatment No Information Medical (General) History Medical History History ICD Code Appendix Neoplasm, Malignant Colon cancer: 06/2021 7 Cost: Sexually active - Yes 7 Cost: Self breast exam- yes *NO SIGNIFICANT GENETIC HISTORY Surgical History Surgery Date(Month/Year) Appendectomy cancer 2018 Bilateral salpingectomy with oophorectom y 2018 Colon surgery 2018 Gallbladder Surgery - Open 2018 lymph node biopsy
--- OUTSIDE RECORDS SUMMARY | 2024-12-13 07:54 | XMS_ITS | Clinical Summary ---
Author Organization [facility] Address [address] [place] [address] Care Team Providers Care Bull Gang Worker Name Role Phone Eder Malone MD Primary Care Provider [phone] Casimiro Gardner Unavailable [phone] Bao Mcgowan MD Unavailable Leidy Luna MD Unavailable [phone] Benito Verde MD Unavailable [phone] Source Comments This information has been disclosed to you from confidential records protectedfrom disclosure by state law. You shall make no further disclosure of thisinformation without the specific, written, and informed release of theindividual to whom it pertains, or as otherwise permitted by law. A generalauthorization for the release of medical or other information is not sufficientfor the purposes of therelease of HIV test results or diagnoses. [id number] Allergies No known active allergies Medications acetaminophen (TYLENOL) 325 MG tabletIndicatio ns:Post-operati ve pain Take 3 tablets (975 mg total) by mouth every 8 hours as needed. 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 Family History Medical History Relation Comments Coronary artery disease Father hx of [place] and pacemaker Coronary artery disease Mother has card iac stent Relation Status Comments Father Mother Social History Tobacco Use Types Packs/Day Years Used Date Smoking Tobacco: Never Smokeless Tobacco: Never Alcohol Use Standard Drinks/Week Comments No 0 (1 standard drink = 0.6 oz pur e alcohol) Comments No Sex and Gender Information Value Date Recorded Sex Assigned at Not on file Legal Sex Female 4:19 PM EST Gender Identity Not on file Sexual Orientation Not on file Last Filed Vital Signs Vital Sign Reading Time Taken Comments Blood Pressure 124/86 11/14/2018 1:10 PM EDT Pulse 100 11/14/2018 1:10 PM EDT Temperature 36.8 C (98.3 F) 10/08/2017 2:04 PM EDT Respiratory Rate 16 11/14/2018 1:10 PM EDT Oxygen Saturation 98% 11/14/2018 1:10 PM EDT Inhaled Oxygen Concentration 98% 11/14/2018 1 :10 PM EDT Weight 64 kg (141 lb 3.2 oz) 11/14/2018 1:10 PM EDT Height 167.6 cm (5' 6 ) 11/14/2018 1:10 PM EDT Body Mass Index 22.79 11/14/2018 1:10 PM EDT Plan of Treatment Not on file Medical Devices Implanted Type Area Wedger Device Identifier Shelf Expiration Date Model / Serial / Lot Port Impl Intmd Kt 1 Lum Ltwt - [id number] Implanted:Qty: 1 on 10/08/2017 by Derrick Meraz MD at [facility] Main CatheterImp Left: Chest BARD ACCESS 01/07/2019 [id number] / / [id number] Insurance BLUE ACCESS Advance Directives For more information, please contact: [phone] * Full Code (Latest Code Status on File) Date Activated Date Inactivated Comments 09/07/2017 7:13 PM 09/12/2017 5:24 PM * Full Code Date Activated Date Inactivated Comments 08/16/2017 5:05 PM 08/22/2017 5:21 PM Question Answer Comments Intubate for Resp Distress: Yes Initiate CPR/ACLS in event of cardiac arrest: Tin s Care Teams Bull Gang Worker Relationship Specialty Start Date End Date Eder Malone MD [address] [place] [address] PCP - General Family Medicine 07/13/17 Casimiro Gardner [address] [place] [address] General Surgery 07/20/17 Bao Mcgowan MD [address] [place] [address] Consulting Physician Gastroenterology 07/20/17 Leidy Luna MD [address] [place], [place] [id number] Surgeon Colon and Rectal Surgery 08/25/17 Benito Verde MD [address] [facility] [address] [place] [address] Surgeon Surgical Oncology 08/25/17
--- OUTSIDE RECORDS SUMMARY | 2024-12-13 07:54 | XMS_ITS | Encounter Summary ---
Author Organization [facility] Address [address] [place] [address] Care Team Providers Care Bearing Inspector Name Role Phone Eder Malone MD Primary Care Provider [phone] Sammi Singh Unavailable Unavailable Gab Olivo MD Unavailable [phone] Katelynn Tian RN Unavailable Unavailable Eva Zambrano NP Unavailable Unavailable Ambulatory, Intelligence Applications Unavailable Unavailab Gab Patterson MD Unavailable [phone] Encounter Details Date Type Department Care Team (Late st Contact Info) Description 03/02/2024 Telephone [facility] Physicians - Hematology & Oncology, [place] [address] [address] Gab Olivo MD [address] [place], [place] [address] Social History Tobacco Use Types Packs/Day Years Used Date Smoking Tobacco: Never Comments Unknown Sex and Gender Information Value Date Recorded Sex Assigned at Not on file Legal Sex Female 4:20 PM EST Gender Identity Not on file Sexual Orientation Not on file documented as of this encounter Miscellaneous Notes * Telephone Encounter - Kyle Qiu MA - 03/02/2024 3:[address] scans approval, Auth#[id number],Valid# Faxed to YENY JARAMILLO documented in this encounter Plan of Treatment Not on file documented as of this encounter Visit Diagnoses Not on filedocumented in this encounter Care Teams Bearing Inspector Relationship Specialty Start Date End Date Eder Malone MD PCP - General Family Medicine 06/28/17 Sammi Singh 04/16/21 Gab Olivo MD [address] [place] [address] Hematology and Oncology 04/16/21 Katelynn Tian RN Registered Nurse 09/03/21 Eva Zambrano, ALLIED HEALTH INSTRUCTOR Nurse Practitioner Nurse Practitioner, Family 09/04/21 Ambulatory, Intelligence Applications 09/04/21 Gab Olivo MD [address] [place], [place] [id number] Hematology and Oncology 06/09/23 documented as of this encounter
== END 2024-12-11 23:59 | disposition home or self-care (01) ==
LOC: LAB.DROPOF 12-13 07:52
PROVIDERS: PCP Family Medicine; Visit Provider Family Medicine
DX: Z00.00 Encounter for general adult medical examination without abnormal findings (principal); D64.9 Anemia, unspecified; I10 Essential (primary) hypertension; Z83.3 Family history of diabetes mellitus; Z13.220 Encounter for screening for lipoid disorders; Z85.09 Personal history of malignant neoplasm of other digestive organs; R53.83 Other fatigue
CPT/HCPCS: 80053; 80061; 83540; 83550; 84443; 85025